=== PATIENT | female | born 1975 | race Hispanic/Latino ===

== ENCOUNTER 2024-10-26 09:34 | Emergency (ER) | payer OTHER ==
[~2024-10-26] VITALS: Ht 165.1 cm; Wt 103.9 kg
[2024-10-26] MEDS ORDERED: GLIPIZIDE ER5 MG PO (09:59)
[2024-10-26] MEDS ORDERED: LANTUS 3ML100 UNITS/ SQ (09:59)
[2024-10-26] MEDS ORDERED: CORICIDIN HBP1 EAC5 PO (10:12)
[2024-10-26] MEDS ORDERED: AZITHROMYCIN250 MG PO (10:12)
[2024-10-26 10:37] VITALS: PULSE 75; RESP 16; TEMP 97.6; O2SAT 97
== END 2024-10-26 10:37 | disposition home or self-care (01) ==
LOC: FSED 09:42
DX: R05.9 Cough, unspecified (principal); J06.9 Acute upper respiratory infection, unspecified; J40 Bronchitis, not specified as acute or chronic; E11.9 Type 2 diabetes mellitus without complications; Z11.52 Encounter for screening for COVID-19
CPT/HCPCS: 0223U; 83518; 87400; 99283